=== PATIENT | male | born 1995 | race African-American/Black ===

== ENCOUNTER 2019-06-07 03:55 | Emergency (ER) | payer OTHER ==
[~2019-06-07] VITALS: Ht 175.3 cm; Wt 95.5 kg
[2019-06-07 03:56] VITALS: BP 137/81
[2019-06-07] MEDS ORDERED: ZYRTTAB8 PO (04:04)
[2019-06-07] MEDS ORDERED: SING10TA32 PO (04:04)
[2019-06-07] MEDS ORDERED: ALBUTEROL 90 MCG/ACT 8GM HFA INHALER INH ONE (05:00)
== END 2019-06-07 04:59 | disposition home or self-care (01) ==
LOC: M ED 03:55
DX: J45.901 Unspecified asthma with (acute) exacerbation (principal); F17.200 Nicotine dependence, unspecified, uncomplicated; Z79.899 Other long term (current) drug therapy